=== PATIENT | male | born 1980 | race Caucasian/White ===

== ENCOUNTER 2016-08-01 08:17 | Emergency (ER) | payer BC ==
--- NOTE | 2016-08-01 08:41 | ED CLINICAL REPORT ---
Clinical Report - Physicians/Mid Levels [facility] [address] [place] [address] 08/01/2016 8:21 Patient: [facility]ILLE ARITA [facility] [id number] Time Seen: 08:32 Kory 2016. Arrived- By private vehicle. Historian- patient. HISTORY OF PRESENT ILLNESS Chief Complaint: DENTAL PAIN. This started today Molar extracted 2 days ago. and is still present. Pain described as moderate. The patient has had toothache. No swollen jaw or face. Similar symptoms previously: None. 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 REVIEW OF SYSTEMS No fever, cough, nausea, diarrhea or abdominal pain. No joint pain, skin rash, enlarged lymph nodes or vomiting. All systems otherwise negative, except as recorded above. PAST HISTORY Crush Injury. Abrasion(s). Substance Abuse. Depression. Diarrhea. Abdominal Pain. Sinusitis. Bronchitis. Hypothyroidism. Medications: Citalopram 20mg PO daily. Allergies: Toradol. SOCIAL HISTORY Never smoker. History of occasional drug use: cocaine. No alcohol use. ADDITIONAL NOTES The nursing notes have been reviewed. PHYSICAL EXAM Vital Signs: 08/01/2016 08:27 BP: 134/94. HR: 70. RR: 16. O2 saturation: 100%. Temp: 98.6 F. Appearance: Alert. Patient in moderate distress. Head: Normal external inspection. ENT: Dental tenderness (Extraction site left lower molar.). Nose normal. Pharynx normal. Lips normal. Gums normal. Uvula midline. Neck: Trachea midline. No adenopathy. CVS: Normal heart rate and rhythm. Heart sounds normal. Pulses normal. No cardiac murmur. Respiratory: No respiratory distress. Breath sounds normal. Chest nontender. Abdomen: Soft and nontender. Skin: Normal skin color. No rash. Extremities: Extremities nontender. Neuro: Oriented X 3. No motor deficit. No sensory deficit. PROGRESS AND PROCEDURES Patient/family counseled. Disposition: Discharged. Condition: stable. CLINICAL IMPRESSION Moderate dental pain (At extraction site.). INSTRUCTIONS Drink plenty of fluids. Warnings: Further evaluation is necessary. Prescription Medications: Penicillin V 500mg: take 1 tab orally every 6 hours for 10 days. Dispense forty (40). No refill Oxycodone/APAP 5 mg/325 mg: take 1 tablet orally every 6 hours as needed for pain. Dispense fifteen (15). No refills. Follow-up: Follow up with a dentist. Call for the next available appointment. Understanding of the discharge instructions verbalized by patient. (Electronically signed by Uriel Morillo MD 08/02/2016 7:56)
--- NOTE | 2016-08-01 08:41 | ED CLINICAL REPORT ---
Clinical Report - Physicians/Mid Levels [facility] [address] [place] [address] 08/01/2016 8:21 [id number] Time Seen: 08:32 Kory 2016. Arrived- By private vehicle. Historian- patient. HISTORY OF PRESENT ILLNESS Chief Complaint: DENTAL PAIN. This started today Molar extracted 2 days ago. and is still present. Pain described as moderate. The patient has had toothache. No swollen jaw or face. Similar symptoms previously: None. 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 REVIEW OF SYSTEMS No fever, cough, nausea, diarrhea or abdominal pain. No joint pain, skin rash, enlarged lymph nodes or vomiting. All systems otherwise negative, except as recorded above. PAST HISTORY Crush Injury. Abrasion(s). Substance Abuse. Depression. Diarrhea. Abdominal Pain. Sinusitis. Bronchitis. Hypothyroidism. Medications: Citalopram 20mg PO daily. Allergies: Toradol. SOCIAL HISTORY Never smoker. History of occasional drug use: cocaine. No alcohol use. ADDITIONAL NOTES The nursing notes have been reviewed. PHYSICAL EXAM Vital Signs: 08/01/2016 08:27 BP: 134/94. HR: 70. RR: 16. O2 saturation: 100%. Temp: 98.6 F. Appearance: Alert. Patient in moderate distress. Head: Normal external inspection. ENT: Dental tenderness (Extraction site left lower molar.). Nose normal. Pharynx normal. Lips normal. Gums normal. Uvula midline. Neck: Trachea midline. No adenopathy. CVS: Normal heart rate and rhythm. Heart sounds normal. Pulses normal. No cardiac murmur. Respiratory: No respiratory distress. Breath sounds normal. Chest nontender. Abdomen: Soft and nontender. Skin: Normal skin color. No rash. Extremities: Extremities nontender. Neuro: Oriented X 3. No motor deficit. No sensory deficit. PROGRESS AND PROCEDURES Patient/family counseled. Disposition: Discharged. Condition: stable. CLINICAL IMPRESSION Moderate dental pain (At extraction site.). INSTRUCTIONS Drink plenty of fluids. Warnings: Further evaluation is necessary. Prescription Medications: Penicillin V 500mg: take 1 tab orally every 6 hours for 10 days. Dispense forty (40). No refill Oxycodone/APAP 5 mg/325 mg: take 1 tablet orally every 6 hours as needed for pain. Dispense fifteen (15). No refills. Follow-up: Follow up with a dentist. Call for the next available appointment. Understanding of the discharge instructions verbalized by patient. (Electronically signed by Uriel Morillo MD 08/02/2016 7:56)
--- NOTE | 2016-08-01 08:41 | ED NURSING NOTES ---
Clinical Report - Nurses [facility] [address] [place] [address] 08/01/2016 8:21 [id number] Triage time 08:27. Acuity: LEVEL 4. Chief Complaint: (Dental extraction x2 days ago and in severe pain.). Alert. No acute distress. SEPSIS SCREEN: Sepsis Screen. Negative (no infection suspected/documented). CONTRERAS COMA SCORE: Contreras Coma Scale: 15- eyes open spontaneously (4); best verbal response- oriented x 4 (5); best motor response- obeys commands (6). --08:32 Yesenia Anthony R.N. 08:27 08/01/16. BP: 134/94. HR: 70. RR: 16. O2 saturation: 100%. Temp: 98.6 F. Pain level now 11/24. --08:32 Yesenia Anthony R.N. Weight: 90.7 kg stated. Height/Length: 69 inches Per Patient. BMI: 29.5. --08:30 Yesenia Anthony R.N. Medications Citalopram 20mg PO daily. --08:32 Yesenia Anthony R.N. Allergies Toradol. --08:32 Yesenia Anthony R.N. History Arrived by private vehicle. Historian: patient. Unaccompanied. Primary physician (Dr. Patel). This started today. 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 PAST MEDICAL HX: Immunizations: up-to-date. SOCIAL HX: Never smoker. History of occasional drug use: marijuana. No alcohol use. No infectious disease exposure. ABUSE ASSESSMENT: Abuse assessment: The patient was asked "Do you feel safe in your home?" and "Has anyone hurt you or threatened to hurt you?". No report of abuse. SELF HARM ASSESSMENT: A self harm assessment was performed. The patient answered "no" to the question "Do you have thoughts of harming or killing yourself?" and "Have you recently had thoughts about harming or killing others?". NUTRITIONAL RISK ASSESSMENT: The nutritional risk assessment revealed no deficiencies. FUNCTIONAL ASSESSMENT: Functional assessment: no impairments noted. LEARNING NEEDS ASSESSMENT: The learning needs assessment revealed no barriers. --08:32 Yesenia Anthony R.N. PROBLEMS: Crush Injury. Abrasion(s). Substance Abuse. Depression. Diarrhea. Abdominal Pain. Sinusitis. Bronchitis. Hypothyroidism. --08:32 Yesenia Anthony R.N. Interventions ID band on patient. Ambulatory. --08:32 Yesenia Anthony R.N. PHYSICAL ASSESSMENT Ambulatory to room. GENERAL / NEURO / PSYCH: Alert. Appears in no acute distress. HEENT: Mucous membranes are pink. RESPIRATORY: Respirations not labored. SKIN: Skin is warm and dry. --08:33 Yesenia Anthony R.N. NURSING PROGRESS NOTES Head of bed elevated. Two patient identifiers checked. Call light placed in reach. Side rails up x 2. Bed placed in lowest position. Brakes of bed on. Patient ready for evaluation- chart flagged. --08:33 Yesenia Anthony R.N. DISPOSITION / DISCHARGE 08:55 08/01/16. RR: 16. Additional comments: d/c v/s deferred due to pt. in ED < 1 hour. Pt. appears stable and comfortable at time of discharge. . --09:58 Yesenia Anthony R.N. 08:55. Departure time: 0855. Condition at departure: stable. No learning barriers present. Discharge instructions provided and reviewed with the patient. Reviewed medication(s) side effects, precautions, dosing and course information. Prescription(s) given to the patient. Reviewed referral to family practice for followup. Patient verbalized understanding. Written instructions provided in Austrian. The patient was discharged home and unaccompanied at time of discharge. He left the Emergency Department ambulatory. Medication list reviewed and validated. --09:59 Yesenia Anthony R.N. Locked/Released at 08/01/2016 9:59 by Yesenia Anthony R.N.
--- NOTE | 2016-08-01 08:41 | ED NURSING NOTES ---
Clinical Report - Nurses [facility] [address] [place] [address] 08/01/2016 8:21 [id number] Triage time 08:27. Acuity: LEVEL 4. Chief Complaint: (Dental extraction x2 days ago and in severe pain.). Alert. No acute distress. SEPSIS SCREEN: Sepsis Screen. Negative (no infection suspected/documented). CONTRERAS COMA SCORE: Contreras Coma Scale: 15- eyes open spontaneously (4); best verbal response- oriented x 4 (5); best motor response- obeys commands (6). --08:32 Yesenia Anthony R.N. 08:27 08/01/16. BP: 134/94. HR: 70. RR: 16. O2 saturation: 100%. Temp: 98.6 F. Pain level now 11/24. --08:32 Yesenia Anthony R.N. Weight: 90.7 kg stated. Height/Length: 69 inches Per Patient. BMI: 29.5. --08:30 Yesenia Anthony R.N. Medications Citalopram 20mg PO daily. --08:32 Yesenia Anthony R.N. Allergies Toradol. --08:32 Yesenia Anthony R.N. History Arrived by private vehicle. Historian: patient. Unaccompanied. Primary physician (Dr. Patel). This started today. 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 PAST MEDICAL HX: Immunizations: up-to-date. SOCIAL HX: Never smoker. History of occasional drug use: marijuana. No alcohol use. No infectious disease exposure. ABUSE ASSESSMENT: Abuse assessment: The patient was asked "Do you feel safe in your home?" and "Has anyone hurt you or threatened to hurt you?". No report of abuse. SELF HARM ASSESSMENT: A self harm assessment was performed. The patient answered "no" to the question "Do you have thoughts of harming or killing yourself?" and "Have you recently had thoughts about harming or killing others?". NUTRITIONAL RISK ASSESSMENT: The nutritional risk assessment revealed no deficiencies. FUNCTIONAL ASSESSMENT: Functional assessment: no impairments noted. LEARNING NEEDS ASSESSMENT: The learning needs assessment revealed no barriers. --08:32 Yesenia Anthony R.N. PROBLEMS: Crush Injury. Abrasion(s). Substance Abuse. Depression. Diarrhea. Abdominal Pain. Sinusitis. Bronchitis. Hypothyroidism. --08:32 Yesenia Anthony R.N. Interventions ID band on patient. Ambulatory. --08:32 Yesenia Anthony R.N. PHYSICAL ASSESSMENT Ambulatory to room. GENERAL / NEURO / PSYCH: Alert. Appears in no acute distress. HEENT: Mucous membranes are pink. RESPIRATORY: Respirations not labored. SKIN: Skin is warm and dry. --08:33 Yesenia Anthony R.N. NURSING PROGRESS NOTES Head of bed elevated. Two patient identifiers checked. Call light placed in reach. Side rails up x 2. Bed placed in lowest position. Brakes of bed on. Patient ready for evaluation- chart flagged. --08:33 Yesenia Anthony R.N. DISPOSITION / DISCHARGE 08:55 08/01/16. RR: 16. Additional comments: d/c v/s deferred due to pt. in ED < 1 hour. Pt. appears stable and comfortable at time of discharge. . --09:58 Yesenia Anthony R.N. 08:55. Departure time: 0855. Condition at departure: stable. No learning barriers present. Discharge instructions provided and reviewed with the patient. Reviewed medication(s) side effects, precautions, dosing and course information. Prescription(s) given to the patient. Reviewed referral to family practice for followup. Patient verbalized understanding. Written instructions provided in British. The patient was discharged home and unaccompanied at time of discharge. He left the Emergency Department ambulatory. Medication list reviewed and validated. --09:59 Yesenia Anthony R.N. Locked/Released at 08/01/2016 9:59 by Yesenia Anthony R.N.
--- NOTE | 2016-08-02 07:57 | ED DISCHARGE INSTRUCTIONS ---
Patient: CECILLE ARITA General Instructions [facility] VisitID: [id number] [place] [address] 36y, M Registration Date/Time: 08/01/2016 Moderate dental pain (At extraction site.). INSTRUCTIONS Drink plenty of fluids. Warnings: Further evaluation is necessary. Prescription Medications: Penicillin V 500mg: take 1 tab orally every 6 hours for 10 days. Dispense forty (40). No refill Oxycodone/APAP 5 mg/325 mg: take 1 tablet orally every 6 hours as needed for pain. Dispense fifteen (15). No refills. Follow-up: Follow up with a dentist. Call for the next available appointment. Understanding of the discharge instructions verbalized by patient. ADDITIONAL INFORMATION Dental Pain A crack or cavity in the tooth, which exposes the sensitive inner area of the tooth can cause tooth pain. An infection in the gum or the root of the tooth can cause pain and swelling. The pain is often made worse by drinking hot or cold fluids, or biting on hard foods. Pain may spread from the tooth to the ear or jaw on the same side. Home Care: Avoid hot and cold foods and liquids since your tooth may be sensitive to temperature changes. If your tooth is chipped or cracked, or if there is a large open cavity, apply OIL OF CLOVES (available nplo-aky-ropbbfy in drug stores) directly to the tooth to reduce pain. Some pharmacies carry an hyfw-gja-mpwwhrc "toothache kit." This contains a paste, which can be applied over the exposed tooth to decrease sensitivity. A cold pack on your jaw over the sore area may help reduce pain. You may use acetaminophen (Tylenol) or ibuprofen (Motrin, Advil) to control pain, unless another medicine was prescribed. [ NOTE: If you have chronic liver or kidney disease or ever had a stomach ulcer or GI bleeding, talk with your doctor before using these medicines.] If you have signs of an infection, an antibiotic will be given. Take it as directed. Follow-Up as directed with a dentist. Your pain may go away with the treatment given. However, only a dentist can fully evaluate and treat the cause and prevent the pain from coming back again. TOOTHACHE IS A SIGN OF DISEASE IN YOUR TOOTH AND SHOULD BE EXAMINED AND TREATED BY A DENTIST. Get Prompt Medical Attention if any of the following occur: Your face becomes swollen or red Pain worsens or spreads to the neck Fever over 100.4 F (38.0 C) Unusual drowsiness; headache or stiff neck; weakness or fainting Pus drains from the tooth Difficulty swallowing or breathing You have been given the following additional information: Dental Pain (Electronically signed by Uriel Morillo MD 08/02/2016 7:56)
--- NOTE | 2016-08-02 07:57 | ED MAR SUMMARY ---
..... Medication Administration Record [facility] [address] [place] [place], [place] [id number] Patient: CECILLE ARITA Visit ID: [id number] 36y, M Weight: 90.7 kg Height/Length: 69 in BMI: 29.5 ALLERGIES: Toradol
--- NOTE | 2016-08-02 07:57 | ED MED RECONCILIATION SUMMARY ---
Patient: CECILLE ARITA Medication Reconciliation Report [facility] VisitID: [id number] [address] [place] [address] 36y, M Registration Date/Time: 08/01/2016 Weight: 90.7 kg Height/Length: 69 in. BMI: 29.5 ALLERGIES: Toradol The patient's Home Medications are listed below: THE FOLLOWING MEDICATIONS NEED TO BE RECONCILED: Citalopram 20mg PO daily The source(s) of the original Home Medication information: Not obtained. The following Medications were given to the patient in the Emergency Department: None. The following Medications were prescribed to the patient: Penicillin V 500mg: take 1 tab orally every 6 hours for 10 days. Dispense forty (40). No refill -- Uriel Morillo MD Oxycodone/APAP 5 mg/325 mg: take 1 tablet orally every 6 hours as needed for pain. Dispense fifteen (15). No refills. -- Uriel Morillo MD
--- NOTE | 2016-08-02 07:57 | ED DISCHARGE INSTRUCTIONS ---
Patient: CECILLE ARITA General Instructions [facility] VisitID: [id number] [place] [address] 36y, M Registration Date/Time: 08/01/2016 Moderate dental pain (At extraction site.). INSTRUCTIONS Drink plenty of fluids. Warnings: Further evaluation is necessary. Prescription Medications: Penicillin V 500mg: take 1 tab orally every 6 hours for 10 days. Dispense forty (40). No refill Oxycodone/APAP 5 mg/325 mg: take 1 tablet orally every 6 hours as needed for pain. Dispense fifteen (15). No refills. Follow-up: Follow up with a dentist. Call for the next available appointment. Understanding of the discharge instructions verbalized by patient. ADDITIONAL INFORMATION Dental Pain A crack or cavity in the tooth, which exposes the sensitive inner area of the tooth can cause tooth pain. An infection in the gum or the root of the tooth can cause pain and swelling. The pain is often made worse by drinking hot or cold fluids, or biting on hard foods. Pain may spread from the tooth to the ear or jaw on the same side. Home Care: Avoid hot and cold foods and liquids since your tooth may be sensitive to temperature changes. If your tooth is chipped or cracked, or if there is a large open cavity, apply OIL OF CLOVES (available bwlo-nph-ddxhsmt in drug stores) directly to the tooth to reduce pain. Some pharmacies carry an gzur-lcv-nuhaecm "toothache kit." This contains a paste, which can be applied over the exposed tooth to decrease sensitivity. A cold pack on your jaw over the sore area may help reduce pain. You may use acetaminophen (Tylenol) or ibuprofen (Motrin, Advil) to control pain, unless another medicine was prescribed. [ NOTE: If you have chronic liver or kidney disease or ever had a stomach ulcer or GI bleeding, talk with your doctor before using these medicines.] If you have signs of an infection, an antibiotic will be given. Take it as directed. Follow-Up as directed with a dentist. Your pain may go away with the treatment given. However, only a dentist can fully evaluate and treat the cause and prevent the pain from coming back again. TOOTHACHE IS A SIGN OF DISEASE IN YOUR TOOTH AND SHOULD BE EXAMINED AND TREATED BY A DENTIST. Get Prompt Medical Attention if any of the following occur: Your face becomes swollen or red Pain worsens or spreads to the neck Fever over 100.4 F (38.0 C) Unusual drowsiness; headache or stiff neck; weakness or fainting Pus drains from the tooth Difficulty swallowing or breathing You have been given the following additional information: Dental Pain (Electronically signed by Uriel Morillo MD 08/02/2016 7:56)
--- NOTE | 2016-08-02 07:57 | ED MED RECONCILIATION SUMMARY ---
Patient: CECILLE ARITA Medication Reconciliation Report [facility] VisitID: [id number] [address] [place] [address] 36y, M Registration Date/Time: 08/01/2016 Weight: 90.7 kg Height/Length: 69 in. BMI: 29.5 ALLERGIES: Toradol The patient's Home Medications are listed below: THE FOLLOWING MEDICATIONS NEED TO BE RECONCILED: Citalopram 20mg PO daily The source(s) of the original Home Medication information: Not obtained. The following Medications were given to the patient in the Emergency Department: None. The following Medications were prescribed to the patient: Penicillin V 500mg: take 1 tab orally every 6 hours for 10 days. Dispense forty (40). No refill -- Uriel Morillo MD Oxycodone/APAP 5 mg/325 mg: take 1 tablet orally every 6 hours as needed for pain. Dispense fifteen (15). No refills. -- Uriel Morillo MD
--- NOTE | 2016-08-02 07:57 | ED MAR SUMMARY ---
..... Medication Administration Record [facility] [address] [place], [place] [id number] Patient: CECILLE ARITA Visit ID: [id number] 36y, M Weight: 90.7 kg Height/Length: 69 in BMI: 29.5 ALLERGIES: Toradol
== END 2016-08-01 08:55 | disposition home or self-care (01) ==
LOC: ED SRH 08:17
DX: K08.89 Other specified disorders of teeth and supporting structures (principal); E03.9 Hypothyroidism, unspecified; Z79.899 Other long term (current) drug therapy; Z88.5 Allergy status to narcotic agent